=== PATIENT | female | born 1960 | race Caucasian/White ===

== ENCOUNTER 2016-06-13 08:34 | Emergency (ER) | payer MEDICAID ==
[~2016-06-13] VITALS: Ht 154.9 cm; Wt 91.0 kg
[2016-06-13] MEDS ORDERED: LORA10TA7 PO (08:42)
[2016-06-13] MEDS ORDERED: PROM6.25 PO (08:42)
[2016-06-13] MEDS ORDERED: MOME13HF2 IH ×2 (08:42→08:43)
[2016-06-13] MEDS ORDERED: MONT10TA24 PO (08:42)
[2016-06-13] MEDS ORDERED: ONDA4TAB51 PO (08:42)
[2016-06-13] MEDS ORDERED: OMEP20TA80 PO (08:42)
[2016-06-13] MEDS ORDERED: [UNRECOGNIZED DRUG - OTHER] (08:43)
[2016-06-13 09:38] LABS: BASOPHILS % 1.2 % (0.0-2.0); EOSINOPHILS % 0.3 % (0.0-5.0); HEMATOCRIT. 44.1 % (36.0-48.0); HEMOGLOBIN. 14.6 g/dL (12.0-16.0); LYMPHOCYTES % 21.4 % (20.0-50.0); MEAN CORPUSCULAR HEMOGLOBIN 28.1 pg (28.0-32.0); MEAN CORPUSCULAR HGB CONC 33.1 g/dL (31.0-37.0); MEAN PLATELET VOLUME 7.9 fl (7.4-10.4); MONOCYTES % 6.5 % (2.0-8.0); NEUTROPHILS % 70.6 % (40.0-76.0); PLATELET 309 x1000/uL (130-400); RED BLOOD CELL COUNT 5.19 mill/uL (4.2-5.4); RED CELL DISTRIBUTION WIDTH 14.4 % (11.6-14.6); WHITE BLOOD COUNT 8.4 x1000/uL (4.5-11.0)
[2016-06-13 09:46] LABS: PROTHROMBIN TIME 10.8 sec
[2016-06-13 09:48] LABS: CALCIUM 8.6 mg/dL (8.5-10.1); CHLORIDE 107 mEq/L (98-107); INDEX HEMOLYSI 1 (1-3); INDEX ICTERIC 1 (1-4); INDEX LIPEMIC 1 (1-3)
[2016-06-13 09:54] LABS: ALANINE AMINOTRANSFERASE 21 IU/L (13-61); ALBUMIN 3.4 g/dL (3.4-5.0); ANION GAP 11; CARBON DIOXIDE 29 mEq/L (21-32); LIPASE 121 IU/L (73-393); UREA NITROGEN BLOOD 8 mg/dL (7-21); eGFR > 60 mL/min (>60)
[2016-06-13 09:55] LABS: HCG SCREEN NEGATIVE
[2016-06-13] MEDS ORDERED: ONDANSETRON 4MG ODT PO ONE (10:00)
[2016-06-13 10:43] LABS: CLARITY URINE CLEAR (CLEAR); COLOR URINE YELLOW (YELLOW); GLUCOSE URINE NEGATIVE (NEGATIVE); KETONES URINE NEGATIVE (NEGATIVE); LEUKOCYTE ESTERASE URINE 3+ (NEGATIVE); NITRITE URINE NEGATIVE (NEGATIVE); OCCULT BLOOD URINE NEGATIVE (NEGATIVE); PROTEIN URINE NEGATIVE (NEGATIVE); SPECIFIC GRAVITY URINE 1.009 (1.005-1.030); UROBILINOGEN URINE 0.2 E.U./dL (0.2-1.0)
[2016-06-13 10:56] LABS: RBC URINE 0-2 /hpf (0-2); SQUAMOUS EPITHELIAL CELL URINE 2+ /lpf (RARE/1+)
[2016-06-13 10:57] LABS: BACTERIA URINE 1+
[2016-06-13 11:47] LABS: *AMPHETAMINES SCREEN URINE NEGATIVE (NEGATIVE); *BARBITURATES SCREEN URINE NEGATIVE (NEGATIVE); *BENZODIAZEPINES SCREEN URINE NEGATIVE (NEGATIVE); *COCAINE SCREEN URINE NEGATIVE (NEGATIVE); CANNABINOID URINE SCREEN NEGATIVE (NEGATIVE); ECSTASY MDMA SCREEN URINE NEGATIVE (NEGATIVE); METHADONE URINE SCREEN NEGATIVE (NEGATIVE); OPIATES URINE SCREEN NEGATIVE (NEGATIVE); PHENCYCLIDINE URINE SCREEN NEGATIVE (NEGATIVE)
[2016-06-13 11:51] VITALS: BP 164/59
== END 2016-06-13 12:02 | disposition home or self-care (01) ==
LOC: ER 09:22
DX: N39.0 Urinary tract infection, site not specified (principal); I10 Essential (primary) hypertension; K21.9 Gastro-esophageal reflux disease without esophagitis; J45.909 Unspecified asthma, uncomplicated; Z88.0 Allergy status to penicillin
CPT/HCPCS: 36415; 80053; 80305; 81001; 83690; 84703; 85025; 85610; 99284; Q0162

== ENCOUNTER 2017-02-18 10:32 | Emergency (ER) | payer MEDICAID ==
[~2017-02-18] VITALS: Ht 154.9 cm; Wt 91.0 kg
[~2017-02-18 10:32] MED LIST: LORA10TA7 PO; MOME13HF2 IH; MONT10TA24 PO; OMEP20TA2 PO; ONDA4TAB51 PO; PROM6.25 PO; [UNRECOGNIZED DRUG - OTHER]
[2017-02-18 10:41] VITALS: BP 145/54
== END 2017-02-18 12:31 | disposition home or self-care (01) ==
LOC: ER 10:41
DX: J45.909 Unspecified asthma, uncomplicated (principal); I10 Essential (primary) hypertension; Z88.0 Allergy status to penicillin
CPT/HCPCS: 99283

== ENCOUNTER 2017-12-14 15:39 | Emergency (ER) | payer MEDICAID ==
[~2017-12-14] VITALS: Ht 154.9 cm; Wt 90.2 kg
[~2017-12-14 15:39] MED LIST changes: -PROM6.25 PO; +PROM6.254 PO
[2017-12-14 20:02] LABS: EOSINOPHILS % 1.6 % (0.0-5.0); HEMATOCRIT. 45.1 % (36.0-48.0); LYMPHOCYTES % 42.2 % (20.0-50.0); MEAN CORPUSCULAR VOLUME 87.1 fL (81.0-99.0); MEAN PLATELET VOLUME 8.7 fl (7.4-10.4); MONOCYTES % 7.8 % (2.0-8.0); NEUTROPHILS % 47.4 % (40.0-76.0); PLATELET 304 x1000/uL (130-400); RED BLOOD CELL COUNT 5.17 mill/uL (4.2-5.4); RED CELL DISTRIBUTION WIDTH 14.2 % (11.6-14.6)
[2017-12-14 20:08] LABS: PROTHROMBIN TIME 10.3 sec (9.1-11.1)
[2017-12-14 20:09] LABS: CHLORIDE 109 mEq/L (98-107)
[2017-12-14 20:13] LABS: HCG SCREEN NEGATIVE
[2017-12-14 20:32] LABS: CLARITY URINE CLOUDY (CLEAR); COLOR URINE YELLOW (YELLOW); KETONES URINE NEGATIVE (NEGATIVE); LEUKOCYTE ESTERASE URINE TRACE (NEGATIVE); NITRITE URINE NEGATIVE (NEGATIVE); OCCULT BLOOD URINE NEGATIVE (NEGATIVE); PROTEIN URINE NEGATIVE (NEGATIVE); SPECIFIC GRAVITY URINE 1.018 (1.005-1.030); UROBILINOGEN URINE 0.2 E.U./dL (0.2-1.0)
[2017-12-14 22:40] VITALS: BP 118/67
== END 2017-12-14 22:49 | disposition home or self-care (01) ==
LOC: ER 15:54
DX: H61.21 Impacted cerumen, right ear (principal); R06.00 Dyspnea, unspecified; I10 Essential (primary) hypertension; E11.9 Type 2 diabetes mellitus without complications
CPT/HCPCS: 36415; 71045; 83880; 84484; 84703; 93005; 99285

== ENCOUNTER 2018-04-15 09:05 | Emergency (ER) | payer MEDICAID, OTHER ==
[~2018-04-15] VITALS: Ht 157.5 cm; Wt 91.0 kg
[2018-04-15 09:11] VITALS: BP 129/68
[2018-04-15] MEDS ORDERED: ALBUTEROL (0.083%) 2.5MG/3ML NEB HHN ONE (09:45)
== END 2018-04-15 11:15 | disposition home or self-care (01) ==
LOC: ER 09:05
DX: J45.901 Unspecified asthma with (acute) exacerbation (principal); B34.9 Viral infection, unspecified; E11.9 Type 2 diabetes mellitus without complications; I10 Essential (primary) hypertension; Z79.899 Other long term (current) drug therapy; Z88.0 Allergy status to penicillin
CPT/HCPCS: 71045; 94640; 99283; J7611

== ENCOUNTER 2018-04-24 10:09 | Emergency (ER) | payer OTHER, MEDICAID ==
[~2018-04-24] VITALS: Ht 154.9 cm; Wt 91.0 kg
[2018-04-24 16:00] VITALS: BP 133/67
== END 2018-04-24 16:47 | disposition home or self-care (01) ==
LOC: ER 10:09
DX: J40 Bronchitis, not specified as acute or chronic (principal); J06.9 Acute upper respiratory infection, unspecified; Z88.0 Allergy status to penicillin
CPT/HCPCS: 71045; 87804; 99284

== ENCOUNTER 2018-05-26 11:31 | Emergency (ER) | payer MEDICAID, OTHER ==
[~2018-05-26] VITALS: Ht 154.9 cm; Wt 91.0 kg
[2018-05-26] MEDS ORDERED: MAGNESIUM/ALUMINUM HYDROXIDE/SIMETHICONE 30ML UDC PO STA (14:04)
[2018-05-26] MEDS ORDERED: ACETAMINOPHEN 325MG TABLET PO STA (14:04)
[2018-05-26] MEDS ORDERED: ONDANSETRON 4MG ODT PO ONE (14:15)
[2018-05-26 14:33] LABS: EOSINOPHILS % 0.5 % (0.0-5.0); HEMATOCRIT. 46.9 % (36.0-48.0); HEMOGLOBIN. 15.4 g/dL (12.0-16.0); LYMPHOCYTES % 30.3 % (20.0-50.0); MEAN CORPUSCULAR HEMOGLOBIN 28.4 pg (28.0-32.0); MEAN CORPUSCULAR VOLUME 86.6 fL (81.0-99.0); MEAN PLATELET VOLUME 7.9 fl (7.4-10.4); MONOCYTES % 7.1 % (2.0-8.0); NEUTROPHILS % 61.1 % (40.0-76.0); PLATELET 332 x1000/uL (130-400); RED BLOOD CELL COUNT 5.41 mill/uL (4.2-5.4); RED CELL DISTRIBUTION WIDTH 14.7 % (11.6-14.6)
[2018-05-26 14:45] LABS: CHLORIDE 108 mEq/L (98-107)
[2018-05-26 15:57] LABS: CLARITY URINE CLEAR (CLEAR); COLOR URINE YELLOW (YELLOW); KETONES URINE NEGATIVE (NEGATIVE); LEUKOCYTE ESTERASE URINE 2+ (NEGATIVE); NITRITE URINE NEGATIVE (NEGATIVE); OCCULT BLOOD URINE NEGATIVE (NEGATIVE); PH URINE 6.5 (4.5-8.0); PROTEIN URINE NEGATIVE (NEGATIVE); SPECIFIC GRAVITY URINE 1.013 (1.005-1.030); UROBILINOGEN URINE 0.2 E.U./dL (0.2-1.0)
[2018-05-26 17:37] VITALS: BP 128/79
== END 2018-05-26 18:07 | disposition home or self-care (01) ==
LOC: ER 11:31
DX: N39.0 Urinary tract infection, site not specified (principal); J45.909 Unspecified asthma, uncomplicated; E11.9 Type 2 diabetes mellitus without complications; I10 Essential (primary) hypertension; Z88.0 Allergy status to penicillin; Z79.899 Other long term (current) drug therapy
CPT/HCPCS: 36415; 76705; 80053; 81003; 83690; 85025; 99284; Q0162

== ENCOUNTER 2019-03-30 14:20 | Emergency (ER) | payer MEDICAID ==
[~2019-03-30] VITALS: Ht 157.5 cm; Wt 91.0 kg
[2019-03-30] MEDS ORDERED: IBUPROFEN 600MG TABLET PO STA (15:50)
[2019-03-30 19:02] VITALS: BP 133/58
== END 2019-03-30 19:21 | disposition home or self-care (01) ==
LOC: ER 14:20
DX: R05 Cough (principal); I10 Essential (primary) hypertension; J45.909 Unspecified asthma, uncomplicated; E11.9 Type 2 diabetes mellitus without complications; Z88.0 Allergy status to penicillin; Z79.899 Other long term (current) drug therapy
CPT/HCPCS: 71045; 99283

== ENCOUNTER 2022-01-02 11:00 | Emergency (ER) | payer MEDICAID ==
[~2022-01-02] VITALS: Ht 154.9 cm; Wt 91.0 kg
[~2022-01-02 11:00] MED LIST changes: +MONT-39 PO; -MONT10TA24 PO; -OMEP20TA2 PO; +OMEP20TA23 PO
[2022-01-02 11:23] VITALS: BP 148/64
[2022-01-02] MEDS ORDERED: BENZ200C52 MT (13:14)
== END 2022-01-02 13:28 | disposition home or self-care (01) ==
LOC: ER 11:13
DX: R05.1 Acute cough (principal)
CPT/HCPCS: 71045; 99283

== ENCOUNTER 2022-03-31 08:44 | Emergency (ER) | payer MEDICAID ==
[~2022-03-31] VITALS: Ht 160 cm; Wt 80.0 kg
[~2022-03-31 08:44] MED LIST changes: +BENZ200C52 MT
[2022-03-31 09:06] VITALS: BP 165/90
[2022-03-31] MEDS ORDERED: ALBUTEROL (0.083%) 2.5MG/3ML NEB HHN STA (09:47)
[2022-03-31] MEDS ORDERED: METHYLPREDNISOLONE SOD SUCC 125 MG/2 ML VIAL IV STA (09:47)
[2022-03-31] MEDS ORDERED: IPRATROPIUM BROMIDE (0.02%) 0.5MG/2.5ML NEB HHN STA (09:47)
[2022-03-31 10:43] LABS: CHLORIDE 111 mEq/L (98-107)
[2022-03-31 10:51] LABS: BASOPHILS % 1.2 % (0.0-2.0); HEMOGLOBIN. 15.5 g/dL (12.0-16.0); LYMPHOCYTES % 36.6 % (20.0-50.0); MEAN CORPUSCULAR HEMOGLOBIN 29.1 pg (28.0-32.0); MEAN CORPUSCULAR VOLUME 86.2 fL (81.0-99.0); MEAN PLATELET VOLUME 8.4 fl (7.4-10.4); MONOCYTES % 6.9 % (2.0-8.0); NEUTROPHILS % 52.3 % (40.0-76.0); PLATELET 296 x1000/uL (130-400); RED BLOOD CELL COUNT 5.34 mill/uL (4.2-5.4)
[2022-03-31] MEDS ORDERED: ALBU6.7H3 INH (11:49)
[2022-03-31] MEDS ORDERED: P20 MT (11:49)
== END 2022-03-31 12:22 | disposition home or self-care (01) ==
LOC: ER 08:44
DX: B34.9 Viral infection, unspecified (principal); J45.901 Unspecified asthma with (acute) exacerbation; E11.9 Type 2 diabetes mellitus without complications; I10 Essential (primary) hypertension; Z79.899 Other long term (current) drug therapy; Z79.51 Long term (current) use of inhaled steroids
CPT/HCPCS: 36415; 71045; 80053; 85025; 87426; 87804; 93005; 94644; 96374; 99285; C9803; J2930; Z7610

== ENCOUNTER 2022-05-28 12:28 | Emergency (ER) | payer MEDICAID ==
[~2022-05-28] VITALS: Ht 154.9 cm; Wt 91.0 kg
[~2022-05-28 12:28] MED LIST changes: +ALBU6.7H3 INH; +MOME13HF12 IH; -MOME13HF2 IH; +P20 MT
[2022-05-28 12:47] VITALS: BP 176/90
== END 2022-05-28 16:26 | disposition left against medical advice (07) ==
LOC: ER 12:36
DX: Z53.21 Procedure and treatment not carried out due to patient leaving prior to being seen by health care provider (principal)
CPT/HCPCS: 99281

== ENCOUNTER 2022-10-15 08:12 | Emergency (ER) | payer BC, MEDICAID ==
[~2022-10-15] VITALS: Ht 160 cm; Wt 91.0 kg
[~2022-10-15 08:12] MED LIST changes: +PROM6.2525 PO; -PROM6.254 PO
[2022-10-15 08:29] VITALS: BP 156/85; PULSE 87; RESP 18; TEMP 98.6; O2SAT 96
[2022-10-15] MEDS ORDERED: BENZ200C52 MT (10:17)
== END 2022-10-15 11:00 | disposition home or self-care (01) ==
LOC: ER 08:12
DX: R05.9 Cough, unspecified (principal); J45.909 Unspecified asthma, uncomplicated; E11.9 Type 2 diabetes mellitus without complications; I10 Essential (primary) hypertension; E03.9 Hypothyroidism, unspecified; Z79.899 Other long term (current) drug therapy
CPT/HCPCS: 71045; 99283

== ENCOUNTER 2022-10-21 11:48 | Emergency (ER) | payer BC ==
[~2022-10-21] VITALS: Ht 152.4 cm; Wt 91.0 kg
[2022-10-21 11:53] VITALS: TEMP 98.5; O2SAT 97
[2022-10-21] MEDS ORDERED: CARBAMIDE PEROXIDE 6.5% OTIC SOLN 15ML RIGHT EAR NR (14:15)
[2022-10-21 15:49] VITALS: BP 164/82; PULSE 84; RESP 22
== END 2022-10-21 16:04 | disposition home or self-care (01) ==
LOC: ER 11:53
DX: H61.21 Impacted cerumen, right ear (principal); J45.909 Unspecified asthma, uncomplicated; E11.9 Type 2 diabetes mellitus without complications; E03.9 Hypothyroidism, unspecified; I10 Essential (primary) hypertension; Z79.899 Other long term (current) drug therapy; Z88.0 Allergy status to penicillin
CPT/HCPCS: 69210; 99282; 99284

== ENCOUNTER 2022-11-25 18:34 | Emergency (ER) | payer MEDICAID, BC ==
[~2022-11-25] VITALS: Ht 160 cm; Wt 90.0 kg
[~2022-11-25 18:34] MED LIST changes: -PROM6.2525 PO; +PROM6.2527 PO
[2022-11-25 18:47] VITALS: BP 162/86; PULSE 79; RESP 20; TEMP 98.5; O2SAT 98
[2022-11-25 19:33] LABS: CLARITY URINE CLEAR (CLEAR); COLOR URINE DARK YELLOW (YELLOW); GLUCOSE URINE NEGATIVE (NEGATIVE); KETONES URINE NEGATIVE (NEGATIVE); LEUKOCYTE ESTERASE URINE 2+ (NEGATIVE); NITRITE URINE POSITIVE (NEGATIVE); OCCULT BLOOD URINE 1+ (NEGATIVE); PH URINE 6.5 (4.5-8.0); PROTEIN URINE NEGATIVE (NEGATIVE); SPECIFIC GRAVITY URINE 1.008 (1.005-1.030)
[2022-11-25 19:37] LABS: SQUAMOUS EPITHELIAL CELL URINE 1+ /lpf (RARE/1+); YEAST URINE NONE SEEN
[2022-11-25] MEDS ORDERED: NITR-87 MT (20:14)
[2022-11-25 20:20] LABS: BACTERIA URINE TRACE
== END 2022-11-25 20:31 | disposition home or self-care (01) ==
LOC: ER 18:34
DX: N39.0 Urinary tract infection, site not specified (principal); J45.909 Unspecified asthma, uncomplicated; E11.9 Type 2 diabetes mellitus without complications; I10 Essential (primary) hypertension; E03.9 Hypothyroidism, unspecified
CPT/HCPCS: 81003; 99283

== ENCOUNTER 2024-06-01 20:20 | Emergency (ER) | payer BC, MEDICAID ==
[~2024-06-01] VITALS: Ht 162.6 cm; Wt 106.0 kg
[~2024-06-01 20:20] MED LIST changes: +NITR-87 MT
[2024-06-01 20:38] VITALS: TEMP 36.8; O2SAT 98
[2024-06-01 23:21] LABS: CHLORIDE 104 mEq/L (98-107); POTASSIUM 3.6 mEq/L (3.5-5.1); SODIUM 141 mEq/L (136-145)
[2024-06-01 23:22] LABS: CARBON DIOXIDE 29 mEq/L (21-32)
[2024-06-01 23:23] LABS: CALCIUM 8.5 mg/dL (8.7-10.4)
[2024-06-01 23:27] LABS: CREATININE 0.6 mg/dL (0.6-1.0); GLUCOSE 121 mg/dL (70-105); UREA NITROGEN BLOOD 10 mg/dL (9-23)
[2024-06-01 23:29] LABS: EOSINOPHILS % 1.2 % (0.0-5.0); HEMATOCRIT. 44.8 % (36.0-48.0); HEMOGLOBIN. 14.3 g/dL (12.0-16.0); MEAN CORPUSCULAR HEMOGLOBIN 28.2 pg (28.0-32.0); MEAN CORPUSCULAR VOLUME 87.9 fL (81.0-99.0); MEAN PLATELET VOLUME 8.1 fl (7.4-10.4); MONOCYTES % 8.7 % (2.0-8.0); NEUTROPHILS % 55.1 % (40.0-76.0); PLATELET 352 x1000/uL (130-400); RED BLOOD CELL COUNT 5.09 mill/uL (4.2-5.4); RED CELL DISTRIBUTION WIDTH 15.7 % (11.6-14.6); TROPONIN I HIGH SENSITIVITY 32 ng/L (3.0-34); WHITE BLOOD COUNT 13.3 x1000/uL (4.5-11.0)
[2024-06-02 01:00] LABS: CLARITY URINE CLOUDY (CLEAR); COLOR URINE YELLOW (YELLOW); GLUCOSE URINE NEGATIVE (NEGATIVE); KETONES URINE NEGATIVE (NEGATIVE); LEUKOCYTE ESTERASE URINE 3+ (NEGATIVE); NITRITE URINE NEGATIVE (NEGATIVE); OCCULT BLOOD URINE TRACE (NEGATIVE); PROTEIN URINE NEGATIVE (NEGATIVE); SPECIFIC GRAVITY URINE 1.009 (1.005-1.030); UROBILINOGEN URINE 0.2 E.U./dL (0.2-1.0)
[2024-06-02 02:11] LABS: TROPONIN I HIGH SENSITIVITY 30 ng/L (3.0-34)
[2024-06-02 02:43] LABS: TROPONIN I HIGH SENSITIVITY 31 ng/L (3.0-34)
[2024-06-02 02:49] VITALS: BP 146/80; PULSE 75; RESP 12; O2SAT 97
[2024-06-02 04:46] LABS: SQUAMOUS EPITHELIAL CELL URINE 1+ /lpf (RARE/1+)
[2024-06-02 04:56] LABS: BACTERIA URINE 1+
[2024-06-05] MEDS ORDERED: ATOR20TA65 PO (00:17)
[2024-06-05] MEDS ORDERED: AMLO5TAB88 PO (00:17)
[2024-06-05] MEDS ORDERED: ASPI-1406 PO (00:17)
== END 2024-06-02 02:57 | disposition home or self-care (01) ==
LOC: ER 20:20
DX: R53.1 Weakness (principal); E11.9 Type 2 diabetes mellitus without complications; I10 Essential (primary) hypertension; Z88.0 Allergy status to penicillin; Z79.899 Other long term (current) drug therapy; Z86.39 Personal history of other endocrine, nutritional and metabolic disease
CPT/HCPCS: 36415; 80048; 81003; 82962; 84484; 85025; 93005; 99284

== ENCOUNTER 2024-06-09 16:12 | Emergency (ER) | payer BC, MEDICAID ==
[~2024-06-09] VITALS: Ht 157.5 cm; Wt 104.0 kg
[~2024-06-09 16:12] MED LIST changes: +AMLO5TAB88 PO; +ASPI-1406 PO; +ATOR20TA65 PO; -NITR-87 MT
[2024-06-09 16:26] VITALS: O2SAT 98
[2024-06-09] MEDS: KETOROLAC 30MG/ML VIAL IM ONE (18:00)
[2024-06-09] MEDS: METOCLOPRAMIDE HCL 10MG TABLET PO ONE (18:00)
[2024-06-09] MEDS: ACETAMINOPHEN 325MG TABLET PO ONE (18:00)
[2024-06-09] MEDS ORDERED: NAPR-681 MT (18:33)
[2024-06-09 18:41] VITALS: BP 164/75; PULSE 94; RESP 18; TEMP 36.8; O2SAT 98
== END 2024-06-09 18:41 | disposition home or self-care (01) ==
LOC: ER 16:12
DX: R51.9 Headache, unspecified (principal); E03.9 Hypothyroidism, unspecified; E11.9 Type 2 diabetes mellitus without complications; I10 Essential (primary) hypertension; J45.909 Unspecified asthma, uncomplicated; Z79.1 Long term (current) use of non-steroidal anti-inflammatories (NSAID); Z79.51 Long term (current) use of inhaled steroids; Z79.82 Long term (current) use of aspirin; Z79.899 Other long term (current) drug therapy; Z88.0 Allergy status to penicillin
CPT/HCPCS: 99283; 96372; J1885; J8597

== ENCOUNTER 2024-07-19 10:18 | Emergency (ER) | payer BC, MEDICAID ==
[~2024-07-19] VITALS: Ht 152.4 cm; Wt 85.0 kg
[~2024-07-19 10:18] MED LIST changes: +NAPR-681 MT
[2024-07-19 10:21] VITALS: O2SAT 99
[2024-07-19 10:27] VITALS: BP 151/77; PULSE 95; RESP 18; TEMP 37; O2SAT 98
[2024-07-19 11:04] LABS: BASOPHILS % 1.4 % (0.0-2.0); HEMATOCRIT. 46.5 % (36.0-48.0); HEMOGLOBIN. 15.1 g/dL (12.0-16.0); LYMPHOCYTES % 33.3 % (20.0-50.0); MEAN CORPUSCULAR HEMOGLOBIN 27.7 pg (28.0-32.0); MEAN CORPUSCULAR HGB CONC 32.4 g/dL (31.0-37.0); MEAN CORPUSCULAR VOLUME 85.7 fL (81.0-99.0); MEAN PLATELET VOLUME 8.4 fl (7.4-10.4); MONOCYTES % 8.2 % (2.0-8.0); NEUTROPHILS % 55.1 % (40.0-76.0); PLATELET 319 x1000/uL (130-400); RED BLOOD CELL COUNT 5.43 mill/uL (4.2-5.4); RED CELL DISTRIBUTION WIDTH 14.8 % (11.6-14.6)
[2024-07-19 11:16] LABS: PARTIAL THROMBOPLASTIN TIME 28.5 sec (23.4-31.0); PROTHROMBIN TIME 10.5 sec (9.6-11.0)
[2024-07-19 11:21] LABS: CHLORIDE 106 mEq/L (98-107); POTASSIUM 3.7 mEq/L (3.5-5.1); SODIUM 141 mEq/L (136-145)
[2024-07-19 11:22] LABS: CALCIUM 8.6 mg/dL (8.7-10.4); CARBON DIOXIDE 26 mEq/L (21-32)
[2024-07-19 11:26] LABS: CREATININE 0.6 mg/dL (0.6-1.0)
[2024-07-19 11:27] LABS: GLUCOSE 112 mg/dL (70-105); UREA NITROGEN BLOOD 13 mg/dL (9-23)
[2024-07-19 12:44] LABS: TROPONIN I HIGH SENSITIVITY 4 ng/L (3.0-34)
[2024-07-19] MEDS ORDERED: POTA-205 MT (12:44)
[2024-07-19] MEDS ORDERED: FURO-152 MT (12:44)
== END 2024-07-19 12:50 | disposition home or self-care (01) ==
LOC: ER 10:18
DX: I11.0 Hypertensive heart disease with heart failure (principal); I50.89 Other heart failure; E78.00 Pure hypercholesterolemia, unspecified; J45.909 Unspecified asthma, uncomplicated; E11.9 Type 2 diabetes mellitus without complications; Z88.0 Allergy status to penicillin; Z79.899 Other long term (current) drug therapy; Z79.82 Long term (current) use of aspirin; Z86.39 Personal history of other endocrine, nutritional and metabolic disease
CPT/HCPCS: 36415; 71045; 80048; 83880; 84484; 85025; 93005; 99285

== ENCOUNTER 2024-11-09 06:52 | Emergency (ER) | payer BC, MEDICAID ==
[~2024-11-09] VITALS: Ht 149.9 cm; Wt 88.0 kg
[~2024-11-09 06:52] MED LIST changes: +FURO-152 MT; +POTA-205 MT
[2024-11-09 07:09] VITALS: O2SAT 96
[2024-11-09 08:56] LABS: CLARITY URINE CLEAR (CLEAR); COLOR URINE YELLOW (YELLOW); GLUCOSE URINE NEGATIVE (NEGATIVE); KETONES URINE NEGATIVE (NEGATIVE); LEUKOCYTE ESTERASE URINE TRACE (NEGATIVE); NITRITE URINE NEGATIVE (NEGATIVE); OCCULT BLOOD URINE 2+ (NEGATIVE); PH URINE 6.0 (4.5-8.0); PROTEIN URINE NEGATIVE (NEGATIVE); SPECIFIC GRAVITY URINE 1.008 (1.005-1.030); UROBILINOGEN URINE 0.2 E.U./dL (0.2-1.0)
[2024-11-09 09:44] LABS: BACTERIA URINE TRACE; SQUAMOUS EPITHELIAL CELL URINE RARE /lpf (RARE/1+)
[2024-11-09 09:45] LABS: WBC URINE NONE SEEN /hpf (0-2)
[2024-11-09 10:54] LABS: BASOPHILS % 0.9 % (0.0-2.0); EOSINOPHILS % 1.7 % (0.0-5.0); HEMATOCRIT. 43.7 % (36.0-48.0); HEMOGLOBIN. 14.4 g/dL (12.0-16.0); LYMPHOCYTES % 28.4 % (20.0-50.0); MEAN PLATELET VOLUME 7.8 fl (7.4-10.4); MONOCYTES % 7.6 % (2.0-8.0); NEUTROPHILS % 61.4 % (40.0-76.0); PLATELET 324 x1000/uL (130-400); RED BLOOD CELL COUNT 5.10 mill/uL (4.2-5.4); RED CELL DISTRIBUTION WIDTH 14.9 % (11.6-14.6)
[2024-11-09 11:07] LABS: CREATININE 0.5 mg/dL (0.6-1.0); UREA NITROGEN BLOOD 8 mg/dL (9-23)
[2024-11-09 11:09] LABS: ASPARTATE AMINOTRANSFERASE 20 IU/L (<34)
[2024-11-09 11:10] LABS: BILIRUBIN TOTAL 0.7 mg/dL (0.1-1.0); PROTEIN TOTAL 7.2 g/dL (6.0-8.3)
[2024-11-09 11:50] VITALS: BP 145/81; PULSE 76; RESP 18; TEMP 36.7; O2SAT 98
== END 2024-11-09 12:57 | disposition home or self-care (01) ==
LOC: ER 06:52
DX: N13.2 Hydronephrosis with renal and ureteral calculous obstruction (principal); Z79.899 Other long term (current) drug therapy; Z88.0 Allergy status to penicillin; J45.909 Unspecified asthma, uncomplicated; E78.5 Hyperlipidemia, unspecified; I10 Essential (primary) hypertension
CPT/HCPCS: 36415; 74176; 80053; 81003; 85025; 99284